=== PATIENT | male | born 1955 | race Caucasian/White ===

== ENCOUNTER 2023-09-20 11:15 | Emergency (ER) | payer SELFPAY ==
[~2023-09-20 11:15] MED LIST: ASPI-1265 PO; ATOR10TA PO; DOCU100C40 PO; HYDR-3972 PO; LOP25T PO
== END 2023-09-20 11:57 | disposition left against medical advice (07) ==
LOC: ER 11:15
DX: J00 Acute nasopharyngitis [common cold] (principal); Z53.21 Procedure and treatment not carried out due to patient leaving prior to being seen by health care provider

== ENCOUNTER 2023-09-25 15:37 | Emergency (ER) | payer MEDICARE ==
[~2023-09-25] VITALS: Ht 172.7 cm; Wt 95.5 kg
[2023-09-25 15:49] VITALS: BP 126/81; PULSE 92; RESP 18; TEMP 97.6; O2SAT 98
[2023-09-25 16:53] LABS: BASOPHILS % (AUTO) 0.5 % (0-1); EOSINOPHILS % (AUTO) 0.5 % (0-6); HEMATOCRIT 40.1 % (42.0-52.0); HEMOGLOBIN 13.2 g/dl (14.0-17.9); LYMPHOCYTES # (AUTO) 1.7 X10'3 (1.1-4.8); LYMPHOCYTES % (AUTO) 29.5 % (21-51); MEAN CORPUSCULAR HEMOGLOBIN 34.9 PG (27.0-31.0); MEAN CORPUSCULAR VOLUME 105.6 FL (78-98); MEAN PLATELET VOLUME 8.4 FL (7.4-10.4); MONOCYTES # (AUTO) 0.4 X10'3 (0-0.9); NEUTROPHILS # (AUTO) 3.7 X10'3 (1.8-7.7); NEUTROPHILS % (AUTO) 63.5 % (42-75); PLATELET COUNT 134 X10'3 (140-440); RED BLOOD COUNT 3.79 X10'6 (4.70-6.10); RED CELL DISTRIBUTION WIDTH 15.6 % (11.5-14.5); WHITE BLOOD COUNT 5.9 X10'3 (4.5-11.0)
[2023-09-25] MEDS ORDERED: normal saline 1000ML IV soln IVB ONE (16:55)
[2023-09-25 17:25] LABS: ALBUMIN 3.5 G/DL (3.4-5.0); ANION GAP 18 (8-16); BLOOD UREA NITROGEN 17 MG/DL (7-18); BUN/CREATININE RATIO 16.8 (10.0-20.0); CALCIUM 8.6 MG/DL (8.5-10.1); CHLORIDE 103 MMOL/L (99-107); CREATININE 1.01 MG/DL (0.60-1.10); GLUCOSE 111 MG/DL (70-104); PRO BRAIN NATRIURETIC PEPTIDE 236 PG/ML (0-125); SODIUM 140 MMOL/L (135-145); TOTAL CARBON DIOXIDE 19.4 MMOL/L (24-32); eCRCL 68 ML/MIN; eGFR 73 ML/MIN
[2023-09-25 18:02] LABS: PROTHROMBIN TIME 10.6 SECONDS (9.0-12.0)
[2023-09-25 18:08] LABS: ETHANOL 287 MG/DL (<10)
[2023-09-25] MEDS ORDERED: phenobarbital inj 130 MG in normal saline 100ml IV soln 99 ML IV SCH (20:00)
== END 2023-09-25 19:11 | disposition left against medical advice (07) ==
LOC: ER 15:38
DX: F10.10 Alcohol abuse, uncomplicated (principal); Z79.82 Long term (current) use of aspirin; Z79.899 Other long term (current) drug therapy
CPT/HCPCS: 36415; 70450; 71045; 80048; 80320; 82140; 83880; 84484; 85025; 85610; 93005; 99285

== ENCOUNTER 2024-02-01 06:10 | Emergency (ER) | payer MEDICARE ==
[~2024-02-01] VITALS: Ht 175.3 cm; Wt 81.2 kg
[~2024-02-01 06:10] MED LIST changes: -ASPI-1265 PO; -ATOR10TA PO; -DOCU100C40 PO; -HYDR-3972 PO; +LINE600T14 PO; -LOP25T PO
[2024-02-01 06:17] VITALS: TEMP 97.5
[2024-02-01] MEDS ORDERED: CHLO25CA10 PO (06:48)
[2024-02-01] MEDS: chlordiazePOXIDE 25mg capsule PO ONE (07:02)
[2024-02-01] MEDS: ondansetron 4mg rapidly disintigrating tab PO ONE (07:02)
[2024-02-01 07:06] VITALS: BP 136/80; PULSE 90; RESP 18; O2SAT 96
== END 2024-02-01 07:33 | disposition home or self-care (01) ==
LOC: ER 06:11
DX: F10.239 Alcohol dependence with withdrawal, unspecified (principal); I25.10 Atherosclerotic heart disease of native coronary artery without angina pectoris; I10 Essential (primary) hypertension; Z95.1 Presence of aortocoronary bypass graft; Z56.0 Unemployment, unspecified; Z59.00 Homelessness unspecified; Z79.899 Other long term (current) drug therapy
CPT/HCPCS: 99284

== ENCOUNTER 2024-02-29 17:41 | Emergency (ER) | payer MEDICARE ==
[~2024-02-29] VITALS: Ht 175.3 cm; Wt 80.0 kg
[~2024-02-29 17:41] MED LIST changes: +CHLO25CA10 PO
[2024-02-29 17:48] VITALS: BP 136/72; PULSE 110; RESP 18; TEMP 98.9; O2SAT 98
[2024-02-29] MEDS ORDERED: ondansetron 4mg rapidly disintigrating tab PO ONE (18:25)
[2024-02-29 19:12] LABS: BASOPHILS # (AUTO) 0.1 X10'3 (0-0.2); BASOPHILS % (AUTO) 1.2 % (0-1); EOSINOPHILS # (AUTO) 0.1 X10'3 (0-0.9); EOSINOPHILS % (AUTO) 1.3 % (0-6); HEMATOCRIT 39.3 % (42.0-52.0); HEMOGLOBIN 13.4 g/dl (14.0-17.9); LYMPHOCYTES # (AUTO) 1.8 X10'3 (1.1-4.8); LYMPHOCYTES % (AUTO) 31.1 % (21-51); MEAN CORPUSCULAR VOLUME 105.8 FL (78-98); MEAN PLATELET VOLUME 8.9 FL (7.4-10.4); MONOCYTES # (AUTO) 0.7 X10'3 (0-0.9); MONOCYTES % (AUTO) 11.6 % (2-12); NEUTROPHILS # (AUTO) 3.1 X10'3 (1.8-7.7); NEUTROPHILS % (AUTO) 54.8 % (42-75); PLATELET COUNT 148 X10'3 (140-440); RED BLOOD COUNT 3.71 X10'6 (4.70-6.10); RED CELL DISTRIBUTION WIDTH 16.9 % (11.5-14.5); WHITE BLOOD COUNT 5.7 X10'3 (4.5-11.0)
[2024-02-29 19:20] LABS: ALANINE AMINOTRANSFERASE 31 U/L (12-78); ALBUMIN 3.9 G/DL (3.4-5.0); ALBUMIN/GLOBULIN RATIO 0.8 (1.1-1.5); ALKALINE PHOSPHATASE 66 IU/L (46-116); ANION GAP 15 (8-16); ASPARTATE AMINO TRANSFERASE 37 U/L (10-37); BLOOD UREA NITROGEN 48 MG/DL (7-18); BUN/CREATININE RATIO 31.4 (10.0-20.0); CALCIUM 9.2 MG/DL (8.5-10.1); CHLORIDE 106 MMOL/L (99-107); CREATININE 1.53 MG/DL (0.60-1.10); GLUCOSE 149 MG/DL (70-104); POTASSIUM 3.7 MMOL/L (3.5-5.1); SODIUM 142 MMOL/L (135-145); TOTAL CARBON DIOXIDE 20.8 MMOL/L (24-32); TOTAL PROTEIN 8.8 G/DL (6.4-8.2); eCRCL 46 ML/MIN; eGFR 45 ML/MIN
[2024-02-29] MEDS ORDERED: dexamethasone sod phosphate 10mg/ml inj IV STA (19:27)
[2024-02-29] MEDS: ketorolac trometh. 30mg/ml inj. IV ONE (20:12)
== END 2024-02-29 20:23 | disposition home or self-care (01) ==
LOC: ER 17:42
DX: R11.0 Nausea (principal); I10 Essential (primary) hypertension; Z79.899 Other long term (current) drug therapy
CPT/HCPCS: 36415; 80053; 85025; 99283